=== PATIENT | female | born 1995 | race African-American/Black ===

== ENCOUNTER 2016-05-16 21:41 | Outpatient (CLI) | payer MEDICAID ==
[~2016-05-16] VITALS: Ht 172.7 cm; Wt 84.5 kg
[~2016-05-16 21:41] MED LIST: ALBUTEROL S0.4 MG/ML; BACTRIM DS 8001 TAB PO; CEPHALEXIN500 M1 PO; FLAGYL500 MG PO; FLOVENT 110MCG7.9 GM IH; NO HOME MEDICATIONS; NORCO 325 MG-51 TAB PO; PREDNISONE 5MG5 MG PO; PREDNISONE20 MG PO; PRENATAL1 TA7 PO; PULMICORT0.5 MG/21 IH; ZOFRAN ODT4 MG PO
[2016-05-16 23:32] VITALS: BP 114/60; PULSE 79; TEMP 98.1
== END 2016-05-16 23:15 | disposition home or self-care (01) ==
LOC: LDRO 21:41
DX: O36.8130 Decreased fetal movements, third trimester, not applicable or unspecified (principal); Z3A.34 34 weeks gestation of pregnancy

== ENCOUNTER 2016-06-01 00:15 | Outpatient (CLI) | payer MEDICAID ==
[~2016-06-01] VITALS: Ht 167.6 cm; Wt 84.1 kg
[2016-06-01 00:39] VITALS: BP 123/71; PULSE 85; TEMP 98.1
[2016-06-01] MEDS ORDERED: IRON325 M2 PO (00:46)
[2016-06-01 01:30] VITALS: BP 109/70; PULSE 78
[2016-06-01 02:15] VITALS: PULSE 70
[2016-06-01 02:45] VITALS: BP 112/64; PULSE 85
[2016-06-01 03:30] VITALS: BP 115/67; PULSE 97
[2016-06-01 05:45] VITALS: TEMP 98.4
== END 2016-06-01 06:01 | disposition home or self-care (01) ==
LOC: LDRO 00:15
DX: O47.03 False labor before 37 completed weeks of gestation, third trimester (principal); Z3A.36 36 weeks gestation of pregnancy

== ENCOUNTER 2016-06-10 18:57 | Outpatient (CLI) | payer MEDICAID ==
[~2016-06-10] VITALS: Ht 167.6 cm; Wt 87.3 kg
[~2016-06-10 18:57] MED LIST changes: +IRON325 M2 PO
== END 2016-06-10 20:30 | disposition home or self-care (01) ==
LOC: LDRO 18:57
DX: Z53.9 Procedure and treatment not carried out, unspecified reason (principal)

== ENCOUNTER 2016-06-29 04:27 | Inpatient (IN) | payer MEDICAID ==
[~2016-06-29] VITALS: Ht 167.6 cm; Wt 87.7 kg
[2016-06-29] VITALS (32 sets, daily range): BP systolic 97–148; BP diastolic 50–88; PULSE 62–105; TEMP 97.9–98.4
[2016-06-29 05:48] LABS: BASO % 0.3 % (0.0-2.0); EOS # 0.1 (0.0-0.7); EOS % 1.3 % (0-4.0); GRAN % 54.2 % (42.2-75.2); LYMPH # 2.4 (1.2-3.4); MEAN CELL VOLUME 84 fl (80.0-100.0); MEAN CORPUSCULAR HGB CONC 33 g/dl (33.0-37.0); MONO # 0.9 (0.1-0.6); MONO % 12.1 % (1.7-9.3); PLATELET COUNT 238 K/mm3 (130-400); RED BLOOD COUNT 3.98 M/mm3 (4.10-5.30); WHITE BLOOD COUNT 7.4 K/mm3 (4.8-10.8)
[2016-06-29 05:51] LABS: HEMATOCRIT 33.5 % (37.0-47.0); HEMOGLOBIN 11.2 g/dl (12.5-16.0); MEAN CORPUSCULAR HEMOGLOBIN 28 pg (27.0-31.0)
[2016-06-30 00:10] VITALS: BP 121/65; PULSE 70; TEMP 98
[2016-06-30 07:00] VITALS: BP 122/66; PULSE 59; TEMP 97.8
[2016-06-30] MEDS ORDERED: MOTRIN 600600 MG/TAB PO (11:49)
[2016-06-30 16:30] VITALS: BP 119/74; PULSE 63; TEMP 98.2
[2016-06-30 19:15] VITALS: BP 106/59; PULSE 65; TEMP 98.2
[2016-07-01 08:00] VITALS: BP 128/82; PULSE 56; TEMP 98.2
== END 2016-07-01 12:20 | disposition home or self-care (01) | DRG 775 ==
LOC: LDRO 04:27 → OB 04:28 → LDR 04:28 → OB 15:30
PROVIDERS: Obstetrics & Gynecology
PROC: 10E0XZZ Delivery of Products of Conception, External Approach (ICD-10-PCS; principal; 2016-06-29)
PROC: 0HQ9XZZ Repair Perineum Skin, External Approach (ICD-10-PCS; 2016-06-29)
DX: O48.0 Post-term pregnancy (principal); O70.0 First degree perineal laceration during delivery; O99.824 Streptococcus B carrier state complicating childbirth; O99.02 Anemia complicating childbirth; D64.9 Anemia, unspecified; Z3A.40 40 weeks gestation of pregnancy; Z37.0 Single live birth
CPT/HCPCS: J2540; J2590; J2795; J7120

== ENCOUNTER 2016-09-15 22:21 | Emergency (ER) | payer MEDICAID ==
[~2016-09-15] VITALS: Ht 167.6 cm; Wt 80.5 kg
[~2016-09-15 22:21] MED LIST changes: +MOTRIN 600600 MG/TAB PO
[2016-09-15 22:24] VITALS: TEMP 98.7
[2016-09-15 22:59] LABS: COLLECTION METHOD CLEAN CATCH
[2016-09-15 23:03] LABS: MUCOUS Present /lpf; PH 5 (5-8); URINE APPEARANCE Hazy; URINE BACTERIA None Seen /hpf; URINE BILIRUBIN Negative (NEGATIVE); URINE BLOOD 3+ (NEGATIVE); URINE COLOR Yellow; URINE GLUCOSE Negative (NEGATIVE); URINE KETONE Negative (NEGATIVE); URINE LEUKOCYTE ESTERASE Negative (NEGATIVE); URINE PROTEIN(semi-quant) 2+ (NEGATIVE); URINE RBC 0-2 /hpf; URINE UROBILINOGEN Negative (NEGATIVE)
[2016-09-15] MEDS ORDERED: NORCO 325 MG-51 TAB PO (23:54)
[2016-09-16 00:17] VITALS: BP 118/70; PULSE 77
== END 2016-09-16 00:18 | disposition home or self-care (01) ==
LOC: COL.ER 22:21
PROVIDERS: Nurse Practitioner
DX: S39.012A Strain of muscle, fascia and tendon of lower back, initial encounter (principal); J45.909 Unspecified asthma, uncomplicated; Z98.890 Other specified postprocedural states; W10.9XXA Fall (on) (from) unspecified stairs and steps, initial encounter

== ENCOUNTER 2017-04-28 18:28 | Emergency (ER) | payer MEDICAID ==
[~2017-04-28] VITALS: Ht 167.6 cm; Wt 75.0 kg
[2017-04-28 18:38] VITALS: BP 137/79; TEMP 98.7
[2017-04-28] MEDS ORDERED: MAGIC MOUTH PO ×2 (20:02→20:18)
[2017-04-28 20:11] VITALS: PULSE 86
== END 2017-04-28 20:12 | disposition home or self-care (01) ==
LOC: COL.ER 18:28
DX: B00.2 Herpesviral gingivostomatitis and pharyngotonsillitis (principal); J45.909 Unspecified asthma, uncomplicated

== ENCOUNTER 2017-08-26 12:19 | Emergency (ER) | payer MEDICAID ==
[~2017-08-26] VITALS: Ht 167.6 cm; Wt 77.3 kg
[~2017-08-26 12:19] MED LIST changes: +MAGIC MOUTH PO
[2017-08-26 12:25] VITALS: BP 137/85; TEMP 98.5
[2017-08-26 14:31] LABS: COLLECTION METHOD CLEAN CATCH
[2017-08-26 14:37] LABS: BASO % 0.6 % (0.0-2.0); EOS # 0.4 (0.0-0.7); EOS % 5.2 % (0-4.0); GRAN # 2.9 (1.4-6.5); GRAN % 41.3 % (42.2-75.2); HEMATOCRIT 40.8 % (37.0-47.0); HEMOGLOBIN 13.8 g/dl (12.5-16.0); LYMPH # 3.1 (1.2-3.4); LYMPH % 43.4 % (20.0-51.0); MEAN CELL VOLUME 87 fl (80.0-100.0); MEAN CORPUSCULAR HEMOGLOBIN 30 pg (27.0-31.0); MEAN CORPUSCULAR HGB CONC 34 g/dl (33.0-37.0); MONO # 0.7 (0.1-0.6); MONO % 9.4 % (1.7-9.3); PLATELET COUNT 330 K/mm3 (130-400); RED BLOOD COUNT 4.68 M/mm3 (4.10-5.30); REDCELL DISTRIBUTION WIDTH-CV 13.2 % (11.5-14.5)
[2017-08-26 14:46] LABS: MUCOUS Present /lpf; PH 5 (5-8); SQUAMOUS EPITHELIAL 0-2 /hpf; URINE APPEARANCE Hazy; URINE BACTERIA None Seen /hpf; URINE BILIRUBIN Negative (NEGATIVE); URINE BLOOD 3+ (NEGATIVE); URINE COLOR Yellow; URINE GLUCOSE Negative (NEGATIVE); URINE KETONE Negative (NEGATIVE); URINE LEUKOCYTE ESTERASE Negative (NEGATIVE); URINE NITRATE Negative (NEGATIVE); URINE PROTEIN(semi-quant) 1+ (NEGATIVE); URINE RBC >50 /hpf; URINE UROBILINOGEN Negative (NEGATIVE)
[2017-08-26 14:48] LABS: BILIRUBIN,TOTAL 0.7 mg/dL (0.0-1.0); CALCIUM 9.4 mg/dL (8.4-10.2); CREATININE, serum 0.83 mg/dL (0.52-1.25); TOTAL PROTEIN 8.2 gm/dL (6.4-8.2)
[2017-08-26 15:22] VITALS: PULSE 88
== END 2017-08-26 15:22 | disposition home or self-care (01) ==
LOC: COL.ER 12:19
PROVIDERS: Physician Assistant
DX: N93.8 Other specified abnormal uterine and vaginal bleeding (principal)